=== PATIENT | female | born 1940 ===

== ENCOUNTER 2020-02-16 11:31 | Emergency (ER) | payer MEDICARE, OTHER ==
[~2020-02-16] VITALS: Ht 162.6 cm; Wt 72.7 kg
[2020-02-16 11:37] VITALS: TEMP 98.2
[2020-02-16] MEDS ORDERED: PLAQUENIL 200M200 MG PO (11:47)
[2020-02-16] MEDS ORDERED: SYNTHROID0.112 MG/T PO (11:47)
[2020-02-16] MEDS ORDERED: COREG 3.123.125 MG/T PO (11:47)
[2020-02-16] MEDS ORDERED: NORVASC 10MG10 MG PO (11:48)
[2020-02-16] MEDS ORDERED: FLEXERIL 1010 MG/TAB PO (11:54)
[2020-02-16 12:52] VITALS: BP 139/81; PULSE 65
== END 2020-02-16 12:53 | disposition home or self-care (01) ==
LOC: COL.ER 11:31
DX: S00.93XA Contusion of unspecified part of head, initial encounter (principal); M47.812 Spondylosis without myelopathy or radiculopathy, cervical region; W10.9XXA Fall (on) (from) unspecified stairs and steps, initial encounter; Y92.009 Unspecified place in unspecified non-institutional (private) residence as the place of occurrence of the external cause

== ENCOUNTER → 2022-02-02 | Outpatient (CLI) | payer MEDICARE, OTHER ==
[~2022-02-02] MED LIST: COREG 3.123.125 MG/T PO; FLEXERIL 1010 MG/TAB PO; NORVASC 10MG10 MG PO; PLAQUENIL 200M200 MG PO; SYNTHROID0.112 MG/T PO
== END ==
LOC: MC.RAD 10:01
DX: Z12.31 Encounter for screening mammogram for malignant neoplasm of breast (principal)